=== PATIENT | male | born 1965 | race African-American/Black ===

== ENCOUNTER 2018-10-05 17:55 | Observation (INO) | payer OTHER ==
[~2018-10-05] VITALS: Ht 170.2 cm; Wt 103.0 kg
[2018-10-05] MEDS ORDERED: HYDRALAZINE HCL 20 MG/ML VIAL IV ONE (18:30)
[2018-10-05 19:25] LABS: BILIRUBIN,URINE NEGATIVE (NEGATIVE); CLARITY,URINE CLEAR (CLEAR); COLOR,URINE YELLOW (YELLOW); KETONES,URINE NEGATIVE (NEGATIVE); LEUKOCYTE ESTERASE ,URINE NEGATIVE (NEGATIVE); NITRITE,URINE NEGATIVE (NEGATIVE); PROTEIN,URINE DIPSTICK 2+ (NEGATIVE); URINE UROBILINOGEN 0.2 mg/dL (0.2 - 1)
[2018-10-05 19:29] LABS: BASOPHILS % 0.5 % (0.0-1.0); EOSINOPHILS # (AUTO) 0.3 (0.0-0.4); EOSINOPHILS % 3.7 % (0.0-6.0); HEMATOCRIT 42.6 % (38.2-49.6); LYMPHOCYTES # (AUTO) 2.3 (1.0-3.2); LYMPHOCYTES % 29.9 % (18.0-39.1); MEAN CORPUSCULAR HEMOGLOBIN 29.2 pg (28-32); MEAN CORPUSCULAR HGB CONC 32.9 g/dL (31-35); MEAN CORPUSCULAR VOLUME 88.8 fL (81-99); MONOCYTES # (AUTO) 0.8 (0.2-0.8); MONOCYTES % 10.3 % (4.4-11.3); NEUTROPHILS # (AUTO) 4.2 (2.1-6.9); NEUTROPHILS % 54.6 % (38.7-80.0); PLATELET COUNT 238 x10e3/uL (140-360); RED CELL DISTRIBUTION WIDTH 12.2 % (11.7-14.4)
[2018-10-05] MEDS ORDERED: CLONIDINE HCL 0.1 MG TAB PO ONE (19:30)
[2018-10-05 19:38] LABS: INR 0.88; PROTHROMBIN TIME 12.8 seconds (11.9-14.5)
[2018-10-05 19:41] LABS: BACTERIA,URINE FEW /HPF; EPITHELIAL CELLS,URINE RARE /LPF; RBC,URINE 0-5 /HPF (0-5); WBC,URINE (MAN) 0-5 /HPF (0-5)
[2018-10-05 19:49] LABS: ALBUMIN 2.8 g/dL (3.5-5.0); ALBUMIN/GLOBULIN RATIO 0.7 (0.8-2.0); ANION GAP 14.3 mmol/L (8-16); CALCIUM 8.9 mg/dL (8.4-10.2); CREATININE, SERUM 2.32 mg/dL (0.72-1.25); POTASSIUM 4.3 mmol/L (3.5-5.1)
[2018-10-05 19:56] LABS: CREATINE KINASE MB 2.6 ng/mL (0-5.0)
--- NOTE | 2018-10-05 19:57 | Diagnostic Imaging Report ---
EXAMINATION: Head CT without contrast. HISTORY:Hypertension. COMPARISON:None. TECHNIQUE: Multidetector axial images were obtained from the foramen magnum to the vertex without contrast. The images were reconstructed using brain and bone algorithms. Thin section brain images were reformatted into coronal and sagittal planes. Dose modulation, iterative reconstruction, and/or weight based adjustment of the mA/kV was utilized to reduce the radiation dose to as low as reasonably achievable. Intravenous contrast: None IMAGE QUALITY: Acceptable. FINDINGS: Skull/scalp: Nonspecific. Multiple punctate superficial radiopaque densities in frontal and bilateral temporal scalp may represent calcifications or debris. Parenchyma: Nonspecific bilateral frontoparietal few, scattered hypodensity are likely related to small vessel ischemic changes. No acute hemorrhage, mass or acute major vascular territorial infarct. Arteries: No density suggestive of thrombosis. Dural sinuses: No abnormal density suggestive of thrombosis. Ventricles: Moderate ventriculomegaly disproportionate to the amount of cerebral volume loss may represent normal pressure hydrocephalus or common indicating type hydrocephalus in appropriate clinical setting. Extra-axial spaces: No abnormal density. Brain volume: Normal for age. Craniocervical junction: No mass, Chiari malformation, or basilar invagination. Sella: No mass. Paranasal/mastoid sinuses: Mild mucosal thickening in left anterior ethmoid air cells. IMPRESSION: No acute intracranial abnormality, particularly no acute hemorrhage, mass or acute major vascular territorial infarct. Moderate ventriculomegaly disproportionate to the amount of cerebral volume loss, may represent normal pressure hydrocephalus or communicating type hydrocephalus in appropriate clinical setting. Signed by: Dr. Leticia Nogueira M.D. on 10/05/2018 7:54 PM
--- NOTE | 2018-10-05 20:13 | Diagnostic Imaging Report ---
EXAMINATION: CHEST 2 VIEWS INDICATION: ^cough, flu like symptoms ^Y COMPARISON: None FINDINGS: PA and lateral views TUBES and LINES: None. LUNGS: Lungs are well inflated. Lungs are clear. There is no evidence of pneumonia or pulmonary edema. PLEURA: No pleural effusion or pneumothorax. HEART AND MEDIASTINUM: The cardiomediastinal silhouette is unremarkable. BONES AND SOFT TISSUES: No acute osseous lesion. Soft tissues are unremarkable. UPPER ABDOMEN: No free air under the diaphragm. IMPRESSION: No acute thoracic abnormality. Signed by: Dr. Shanon Cohen M.D. on 10/05/2018 8:09 PM
[2018-10-05] MEDS ORDERED: SODIUM CHLORIDE 0.9% 1000ML 1,000 ML IV STA (20:26)
[2018-10-05] MEDS ORDERED: INSULIN REGULAR, HUMAN 100 UNIT/1 ML 3ML VIAL IV ONE (20:45)
[2018-10-05 20:46] LABS: PLATELET ESTIMATE ADEQUATE; PLATELET MORPHOLOGY COMMENT NORMAL; RBC MORPHOLOGY COMMENT NORMAL
[2018-10-05] MEDS ORDERED: HYDRALAZINE HCL 20 MG/ML VIAL IV PRN (22:45)
[2018-10-05] MEDS ORDERED: ONDANSETRON HCL INJ 2 MG/ML VIAL IV PRN (22:45)
[2018-10-05] MEDS ORDERED: DEXTROSE 50% SYRINGE 50 ML IV PRN (22:45)
--- OUTSIDE RECORDS SUMMARY | 2018-10-05 22:49 | XMS REPORT ---
Author Author [facility] Address Unknown Phone Unavailable Care Team Providers Care Missionary Coordinator Name Role Phone Miri PLATT Unavailable Unavailable Problems This patient has no known problems. Allergies, Adverse Reactions, Alerts This patient has no known allergies or adverse reactions. Medications This patient has no known medications. Results Test Description Test Time Test Comments Text Results Atomic Results Result Comments CHEST 2 VIEWS 2018-10-05 20:09:00 [facility] [address] [address] Patient Name: AXEL CENTENO MR #: [id number] : 1965 Age/Sex: 53/M Req #: [id number] Adm Physician: Ordered by: KAT LAL ROBOTIC WELDER Report #: [id number] Location: ER Room/Bed: Procedure: [id number] DX/CHEST 2 VIEWS Exam Date: Exam Time: REPORT STATUS: Signed EXAMINATION: CHEST 2 VIEWS INDICATION: cough, flu like symptoms Y COMPARISON: None FINDINGS: PA and lateral views TUBES and LINES: None. LUNGS: Lungs are well inflated. Lungs are clear. There is no evidence of pneumonia or pulmonary edema. PLEURA: No pleural effusion or pneumothorax. HEART AND MEDIASTINUM: The cardiomediastinal silhouette is unremarkable. BONES AND SOFT TISSUES: No acute osseous lesion. Soft tissues are unremarkable. UPPER ABDOMEN: No free air under the diaphragm. IMPRESSION: No acute thoracic abnormality. Signed by: Dr. Vazquez Ochoa M.D. on 10/05/2018 8:09 PM Dictated By: VAZQUEZ OCHOA MD 08 Transcribed By: JENS on 10/05/182008 COPY TO: KAT LAL NP CT BRAIN WO 2018-10-05 19:49:00 [address] [address] Patient Name: AXEL CENTENO MR #: [id number] : 1965 Age/Sex: 53/M Req #: [id number] Adm Physician: Ordered by: KAT LAL NP Report #: [id number] Location: ER Room/Bed: Procedure: [id number] CT/CT BRAIN WO Exam Date: Exam Time: REPORT STATUS: Signed EXAMINATION: Head CT without contrast. HISTORY:Hypertension. COMPARISON:None. TECHNIQUE: Multidetector axial images were obtained from the foramen magnum to the vertex without contrast. The images were reconstructed using brain and bone algorithms. Thin section brain images were reformatted into coronal and sagittal planes. Dose modulation, iterative reconstruction, and/or weight based adjustment of the mA/kV was utilized to reduce the radiati on dose to as low as reasonably achievable. Intravenous contrast: None IMAGE QUALITY: Acceptable. FINDINGS: Skull/scalp: Nonspecific. Multiple punctate superficial radiopaque densities in frontal and bilateral temporal scalp may represent calcifications or debris. Parenchyma: Nonspecific bilateral frontoparietal few, scattered hypodensity are likely related to small vessel ischemic changes. No acute hemorrhage, mass or acute major vascular territorial infarct. Arteries: No density suggestive of thrombosis. Dural sinuses: No abnormal density suggestive of thrombosis. Ventricles: Moderate ventriculomegaly disproportionate to the amount of cerebral volume loss may represent normal pressure hydrocephalus or common indicating type hydrocephalus in appropriate clinical setting. Extra-axial spaces: No abnormal density. Brain volume: Normal for age. Craniocervical junction: No mass, Chiari malformation, or basilar invag ination. Sella: No mass. Paranasal/mastoid sinuses: Mild mucosal thickening in left anterior ethmoid air cells. IMPRESSION: No acute intracranial abnormality, particularly no acute hemorrhage, mass or acute major vascular territorial infarct. Moderate ventriculomegaly disproportionate to the amount of cerebral volume loss, may represent normal pressure hydrocephalus or communicating type hydrocephalus in appropriate clinical setting. Signed by: Dr. Leticia Nogueira M.D. on 10/05/2018 7:54 PM Dictated By: LETICIA NOGUEIRA MD 53 Transcribed By: JENS on 10/05/181953 COPY TO: KAT LAL NP
--- OUTSIDE RECORDS SUMMARY | 2018-10-05 22:49 | XMS REPORT | Summary of Care ---
Author Author [facility] Organization [facility] Address Unknown Phone Unavailable Encounter HQ Encntr_alivesna(FIN) [id number] Date(s): 11/14/16 - 11/14/16 [facility] [address] [place] [address]- Discharge Disposition: Home or Self Care Attending Physician: Rikki Horton MD Referring Physician: Rikki Horton MD Vital Signs No data available for this section Problem List No data available for this section Allergies, Adverse Reactions, Alerts No data available for this section Medications No data available for this section Results No data available for this section Immunizations No data available for this section Procedures No data available for this section Social History No data available for this section Assessment and Plan No data available for this section
--- OUTSIDE RECORDS SUMMARY | 2018-10-05 22:49 | XMS REPORT | Continuity of Care Document ---
Author Author [facility] Interface Address Unknown Phone Unavailable Problems Problem Status Onset Date Classification Date Reported Comments Source [facility] [place] [address] Active 11/06/2016 [facility] Medications Medication Details Route Status Patient Instructions Ordering Provider Order Date Source Allergies, Adverse Reactions, Alerts Substance Category Reaction Severity Reaction type Status Date Reported Comments Source Immunizations Immunization Date Given Site Status Last Updated Comments Source Results Order Name Results Value Reference Range Date Interpretation Comments Source Vital Signs Vital Sign Value Date Comments Source Encounters Location Location Details Encounter Type Encounter Number Reason For Visit Attending Provider ADM Date DC Date Status Source [facility] Outpatient [id number] Rikki Horton 11/15/2016 11/15/2016 [facility] Procedures Procedure Code Date Perfomer Comments Source
[2018-10-06 03:35] LABS: BASOPHILS % 0.3 % (0.0-1.0); EOSINOPHILS # (AUTO) 0.2 (0.0-0.4); EOSINOPHILS % 2.4 % (0.0-6.0); HEMATOCRIT 39.5 % (38.2-49.6); LYMPHOCYTES # (AUTO) 2.1 (1.0-3.2); LYMPHOCYTES % 20.8 % (18.0-39.1); MEAN CORPUSCULAR HEMOGLOBIN 29.2 pg (28-32); MEAN CORPUSCULAR HGB CONC 32.9 g/dL (31-35); MEAN CORPUSCULAR VOLUME 88.8 fL (81-99); MONOCYTES # (AUTO) 0.7 (0.2-0.8); MONOCYTES % 6.9 % (4.4-11.3); NEUTROPHILS # (AUTO) 6.8 (2.1-6.9); NEUTROPHILS % 68.8 % (38.7-80.0); PLATELET COUNT 224 x10e3/uL (140-360); RED BLOOD COUNT 4.45 x10e6/uL (4.3-5.7); RED CELL DISTRIBUTION WIDTH 12.3 % (11.7-14.4)
[2018-10-06 03:48] LABS: ANION GAP 12.2 mmol/L (8-16); CALCIUM 8.5 mg/dL (8.4-10.2); CHOL/HDL RATIO 7.1 (3.9-4.7); CREATININE, SERUM 1.71 mg/dL (0.72-1.25); POTASSIUM 4.2 mmol/L (3.5-5.1)
[2018-10-06] MEDS ORDERED: METFORMIN HCL500 MG PO (03:59)
[2018-10-06 04:11] LABS: CREATINE KINASE MB 2.1 ng/mL (0-5.0)
[2018-10-06] MEDS: ACETAMINOPHEN 325 MG TAB PO PRN ×3 (04:45→19:31)
[2018-10-06 05:03] VITALS: BP 152/84
[2018-10-06 08:00] VITALS: BP 177/89
[2018-10-06] MEDS: ASPIRIN 81 MG ENTERIC COATED PO SCH (08:50)
[2018-10-06] MEDS: METOPROLOL TARTRATE 25 MG TAB PO SCH ×2 (08:50→20:35)
[2018-10-06] MEDS: INSULIN LISPRO 100 UNIT/1 ML 3ML VIAL SQ SCH ×4 (08:50→21:00)
[2018-10-06] MEDS ORDERED: LISINOPRIL 10 MG TAB PO ONE (10:30)
[2018-10-06] MEDS: AMLODIPINE BESYLATE 10 MG TAB PO SCH (11:00)
[2018-10-06 11:09] LABS: CREATINE KINASE MB 2.1 ng/mL (0-5.0)
[2018-10-06 11:22] VITALS: BP 177/98
[2018-10-06 12:27] LABS: CREATININE,URINE RANDOM 101.03 mg/dL (63-166); TOTAL PROTEIN, URINE 103.6 mg/dL (1-14)
--- NOTE | 2018-10-06 12:44 | Consultation ---
DATE OF CONSULTATION: October 06, 2018 RENAL CONSULTATION ADMITTING PHYSICIAN: Dr. Bowen. REASON FOR CONSULTATION: Acute kidney injury, hypertensive crisis. HISTORY OF PRESENT ILLNESS: A 53-year-old male with history of diabetes and hypertension, who presented [facility] with severe hand and leg cramping. Patient states he has been ill since Thanksgiving with flu-like symptoms. His symptoms improved but then got worse again. He was taking Tamiflu for his symptoms. 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 When he arrived, his blood pressure was 177/89 with a pulse of 89 and respiratory rate of 18. The patient was admitted. Nephrology consultation was called. Patient states he has never had any history of kidney disease in the past nor seen a kidney specialist. He denies taking any other [id number] medications including NSAIDs. REVIEW OF SYSTEMS: As above. All other systems negative. PAST MEDICAL HISTORY 1. Diabetes for approximately 1 year. 2. Hypertension for approximately 2 years. PAST SURGICAL HISTORY: None. SOCIAL HISTORY: No tobacco, no alcohol. 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 FAMILY HISTORY: Mother with end-stage renal disease on dialysis. ALLERGIES: IODINE. CURRENT MEDICATIONS: See list. VITALS: Blood pressure 152/84 to 177/89. Pulse 97 to 83. Respiratory rate 17. Temperature 97. PHYSICAL EXAMINATION GENERAL: No apparent distress. HEENT: Oropharynx clear. No scleral icterus. No papilledema. NECK: Supple. No elevation of jugular venous pressure. No lymphadenopathy. CHEST: Clear to auscultation anteriorly bilaterally. CARDIOVASCULAR: Regular rhythm. No murmurs, rubs or gallops. ABDOMEN: Soft. Positive bowel sounds. No tenderness, no rebound. EXTREMITIES: No edema. No clubbing. No cyanosis. SKIN: Warm. IMAGING: CT of the head shows moderate ventriculomegaly disproportionate to the amount of cerebral volume loss. Chest x-ray clear. LABS: White count 9.89, hemoglobin 13, platelets 224. Sodium 131, potassium 4.2, chloride 102, CO2 21, BUN 24, creatinine 1.71, blood glucose 260. Urine: 2+ protein, 3+ glucose. ASSESSMENT AND PLAN 1. Acute kidney injury on chronic kidney disease, suspect stage 3, due to volume depletion and hypertensive urgency. Patient's kidney function has improved. Will check renal ultrasound, urine spot eznkmos-[id number] ratio. Suspect he has underlying diabetic nephropathy. Will need to start ALBERT inhibitor. 2. Hyponatremia. Restrict water intake. 3. Hypertension. Start ALBERT inhibitor as above. 4. Diabetes. Per primary team. Job#: [id number] EV
--- NOTE | 2018-10-06 13:16 | Consultation ---
DATE OF CONSULTATION: October 06, 2018 CARDIOLOGY CONSULTATION REASON FOR CONSULTATION: Hypertensive urgency. HISTORY OF PRESENT ILLNESS: This is a 53-year-old male with a history of hypertension and diabetes mellitus currently off his antihypertensive medications who presented to the emergency department with left hand cramping and lower extremity cramping. The patient also reports progressive lethargy, fatigue, cough with sputum production and mild shortness of breath. The patient upon arrival was noted to be extremely hypertensive with systolic readings above 200. The patient states he has no prior history of myocardial infarction, heart failure, arrhythmias or valvular heart disease. The patient is supposed to be on antihypertensives; however, discontinued them for unknown reasons. He denies any chest pain or pressure, nor palpitations or near syncope or laurita syncope. REVIEW OF SYSTEMS: A 12-point review of systems was conducted, and is negative other than stated above in the HPI. PAST MEDICAL HISTORY: Diabetes mellitus and hypertension. PAST SURGICAL HISTORY: None recent reported. FAMILY HISTORY: No premature coronary artery disease or sudden cardiac . SOCIAL HISTORY: No current illicit drug use, alcohol or tobacco use. ALLERGIES: IODINE. MEDICATIONS: See medication reconciliation form. PHYSICAL EXAMINATION VITAL SIGNS: Temperature 97.3, heart rate 93, respirations 18, blood pressure 177/98, oxygen saturation 97% on room air. GENERAL: A well-appearing, well-developed male lying comfortably in bed HEENT: Head is normocephalic, atraumatic. Eyes: Extraocular movements are intact. Conjunctivae clear. NECK: No JVD. No bruits. CARDIOVASCULAR: Regular rate and rhythm. No murmurs. LUNGS: Clear to auscultation. ABDOMEN: Soft, nontender. EXTREMITIES: No edema. VASCULAR: 2+ pulses. SKIN: Warm, dry, and intact. NEUROLOGIC: No focal deficits noted. Cranial nerves are grossly intact. PSYCHIATRIC: Normal mood and affect. LABORATORY DATA: Hemoglobin 13, white blood cell count 9.89, creatinine 1.71, troponin negative x3. Glucose 285. LDL cholesterol 172, HDL 36, triglycerides 240. Chest x-ray shows no acute thoracic abnormalities. A 12-lead electrocardiogram shows normal sinus rhythm with nonspecific ST-T wave abnormalities. IMPRESSION 1. Hypertensive urgency. 2. Diabetes mellitus. 3. Hyperlipidemia. 4. Cough with sputum production. RECOMMENDATIONS: Will initiate amlodipine for better blood pressure control. Will avoid nephrotoxic agents as his creatinine is mildly elevated above an unknown baseline. Will check a 2D echocardiogram. There appears to be no evidence of acute coronary syndrome at this point in time as the patient has no chest pain and he has negative cardiac enzymes. Will initiate statin for his hyperlipidemia. Otherwise, defer treatment of possible bronchitis to primary team. Job#: [id number] GH
--- NOTE | 2018-10-06 14:13 | Diagnostic Imaging Report ---
EXAMINATION: Renal ultrasound. CLINICAL HISTORY :Acute kidney injury on chronic kidney disease COMPARISON: <None available.> TECHNIQUE: Grayscale and color Doppler evaluation of the kidneys and bladder was performed in transverse and longitudinal planes. DISCUSSION: RIGHT KIDNEY: The right kidney measures 9.6 cm in length and shows increased renal cortical echogenicity. No hydronephrosis, shadowing calculi or solid mass lesions. LEFT KIDNEY: The left kidney measures 9.7 cm in length and shows increased renal cortical echogenicity. No hydronephrosis, shadowing calculi or solid mass lesions. BLADDER: Unremarkable. Right ureteral jet is identified. Left ureteral jet is not identified likely related to scan timing. IMPRESSION: 1. Increased renal cortical echogenicity compatible with medical renal disease. Signed by: Dr. Wood Aguayo M.D. on 10/06/2018 2:10 PM
[2018-10-06 15:51] VITALS: BP 133/73
[2018-10-06 20:00] VITALS: BP 166/79
[2018-10-06 20:05] VITALS: BP 166/79
[2018-10-06] MEDS ORDERED: ATORVASTATIN 20 MG TAB PO SCH (21:00)
[2018-10-06] MEDS ORDERED: ATORVASTATIN 40 MG TAB PO SCH (21:00)
[2018-10-07] VITALS: BP 136/69
[2018-10-07 04:35] VITALS: BP 134/70
[2018-10-07 04:58] LABS: BASOPHILS % 0.6 % (0.0-1.0); EOSINOPHILS # (AUTO) 0.2 (0.0-0.4); EOSINOPHILS % 2.8 % (0.0-6.0); HEMATOCRIT 42.3 % (38.2-49.6); HEMOGLOBIN 13.8 g/dL (14.0-18.0); LYMPHOCYTES # (AUTO) 2.1 (1.0-3.2); LYMPHOCYTES % 29.2 % (18.0-39.1); MEAN CORPUSCULAR HEMOGLOBIN 29.1 pg (28-32); MEAN CORPUSCULAR HGB CONC 32.6 g/dL (31-35); MEAN CORPUSCULAR VOLUME 89.2 fL (81-99); MONOCYTES # (AUTO) 0.7 (0.2-0.8); MONOCYTES % 9.4 % (4.4-11.3); NEUTROPHILS # (AUTO) 4.1 (2.1-6.9); NEUTROPHILS % 56.7 % (38.7-80.0); PLATELET COUNT 223 x10e3/uL (140-360); RED BLOOD COUNT 4.74 x10e6/uL (4.3-5.7); RED CELL DISTRIBUTION WIDTH 12.4 % (11.7-14.4)
[2018-10-07 05:14] LABS: ANION GAP 11.3 mmol/L (8-16); CALCIUM 9.2 mg/dL (8.4-10.2); CREATININE, SERUM 1.56 mg/dL (0.72-1.25); POTASSIUM 4.3 mmol/L (3.5-5.1)
[2018-10-07] MEDS: INSULIN LISPRO 100 UNIT/1 ML 3ML VIAL SQ SCH ×2 (07:30→11:30)
[2018-10-07 08:32] VITALS: BP 144/76
[2018-10-07] MEDS: METOPROLOL TARTRATE 25 MG TAB PO SCH (08:38)
[2018-10-07] MEDS: ASPIRIN 81 MG ENTERIC COATED PO SCH (08:38)
[2018-10-07] MEDS: AMLODIPINE BESYLATE 10 MG TAB PO SCH (08:39)
[2018-10-07] MEDS ORDERED: METFORMIN HCL 500 MG TAB PO SCH (09:00)
[2018-10-07] MEDS ORDERED: LISINOPRIL 10 MG TAB PO SCH (09:00)
--- NOTE | 2018-10-07 09:56 | Discharge Summary ---
HOSPITAL COURSE: Mr. Nance is a 53-year-old man with history of diabetes, hypertension, and hyperlipidemia who stopped all his medications 7 months ago. He came to the emergency room because he was having cramps in his legs and hands. He was found to have elevated blood pressure and elevated blood sugar as well as elevated creatinine. He has been seen by sand miller and electrical design engineer. At the present time, he is doing better, and the plan is to discharge him home if it is okay with electrical design engineer. On the physical examination, he awake and alert. He is feeling much better. Temperature is 98. Blood pressure is 134/70. The heart is regular rate. Lungs are clear to auscultation. Abdomen is soft. On the blood work, potassium 4.3. Creatinine 1.56. Glucose 287. White count 7.16, hemoglobin 13.8, hematocrit 42.3. Echocardiogram shows trace MR. Ejection fraction is 60%. LVH. Mild MR. Chest x-ray shows no acute findings. Head CT shows no acute intracranial abnormalities. Renal ultrasound shows increased renal cortical echogenicity compatible with medical renal disease. DISCHARGE DIAGNOSES 1. Uncontrolled hypertension, doing better. 2. Hypertensive chronic kidney disease, stage 3. 3. Chronic kidney disease, stage 3. 4. Uncontrolled diabetes with chronic kidney disease. 5. Bronchitis. The plan is to discharge the patient home if it is okay with consultants. He is going to be on aspirin 81 mg daily, Levaquin 500 mg daily, Norvasc 10 mg daily, metoprolol 25 mg twice a day, Lipitor 40 mg daily, lisinopril 10 mg daily, Amaryl 4 mg twice a day, metformin 500 mg twice a day. He needs to follow up with me next week so we can evaluate him and clear him to go back to work if stable. All this was discussed with patient and at bedside. All questions were answered to satisfaction. Please see home medication reconciliation list. Job#: [id number]
[2018-10-07 11:53] VITALS: BP 148/83
[2018-10-07] MEDS ORDERED: ASPIR 8181 MG PO (15:30)
[2018-10-07] MEDS ORDERED: levoquin PO (15:30)
[2018-10-07] MEDS ORDERED: NORVASC5 MG PO (15:31)
[2018-10-07] MEDS ORDERED: METOPROLOL TART25 MG PO (15:32)
[2018-10-07] MEDS ORDERED: LIPITOR20 MG PO (15:33)
[2018-10-07] MEDS ORDERED: AMARYL4 MG PO (15:33)
[2018-10-07] MEDS ORDERED: LISINOPRIL10 MG PO (15:33)
[2018-10-07 16:00] VITALS: BP 158/95
== END 2018-10-07 16:18 | disposition home or self-care (01) ==
LOC: ER 17:55 → ERHOLD 22:46 → IMCU 10-06 02:43
PROVIDERS: ADMIT Internal Medicine; ATTEND Internal Medicine
DX: E11.65 Type 2 diabetes mellitus with hyperglycemia (principal); N17.9 Acute kidney failure, unspecified; Z91.14 Patient's other noncompliance with medication regimen; E78.5 Hyperlipidemia, unspecified; E11.22 Type 2 diabetes mellitus with diabetic chronic kidney disease; I12.9 Hypertensive chronic kidney disease with stage 1 through stage 4 chronic kidney disease, or unspecified chronic kidney disease; N18.3 Chronic kidney disease, stage 3 (moderate); I16.0 Hypertensive urgency; E11.21 Type 2 diabetes mellitus with diabetic nephropathy; E87.1 Hypo-osmolality and hyponatremia; J06.9 Acute upper respiratory infection, unspecified; Z83.3 Family history of diabetes mellitus; Z82.49 Family history of ischemic heart disease and other diseases of the circulatory system
CPT/HCPCS: 36415 ×3; 70450; 71046; 76770; 80048 ×2; 80053; 80061; 81001; 82550 ×2; 82553 ×2; 82570; 82948 ×2; 83735; 84156; 84484 ×2; 85025 ×3; 85610; 85730; 87400; 93005; 93306; 99284; G0378 ×3; J0360 ×2; J1817; J2405; J7030